=== PATIENT | female | born 1995 | race Caucasian/White ===

== ENCOUNTER 2018-06-25 16:07 | Emergency (ER) | payer BC ==
[2018-06-25 17:56] VITALS: BP 117/66
--- NOTE | 2018-06-25 18:45 | UC ---
Ear Complaint HPI - HPI Summary HPI Summary: 23 YO FEMALE who comes to clinic today with complaint of right ear pain. going on about one week it's gotten worse the last day or 2. She is a swimmer. She also has upper respiratory tract infection symptoms with nasal congestion and sinus pressure. No known trauma to the ear no known foreign bodies IN ear. No fevers - History of Current Complaint Chief Complaint: UCEar Stated Complaint: RT EAR PAIN Time Seen by Provider: 06/25/18 18:33 Hx Last Menstrual Period: 06/04/18 Pain Intensity: 4 - Allergies/Home Medications Allergies/Adverse Reactions: Allergies Allergy/AdvReac Type Severity Reaction Status Date / Time amoxicillin AdvReac Vomiting Verified 06/25/18 17:56 Home Medications: Home Medications Control Pill 1 tab BEDTIME 06/25/18 [History Confirmed 06/25/18] Sertraline* [Zoloft*] 100 mg PO BEDTIME 06/25/18 [History Confirmed 06/25/18] PMH/Surg Hx/FS Hx/Imm Hx - Surgical History Surgical History: None - Family History Known Family History: Positive: Unknown - Social History Alcohol Use: Occasionally Substance Use Type: None Smoking Status (MU): Never Smoked Tobacco Review of Systems Constitutional: Negative Skin: Negative Eyes: Negative ENT: Ear Ache, Nasal Discharge, Sinus Congestion Respiratory: Negative Cardiovascular: Negative Gastrointestinal: Negative Genitourinary: Negative Motor: Negative Neurovascular: Negative Musculoskeletal: Negative Neurological: Negative Psychological: Negative Is Patient Immunocompromised?: No All Other Systems Reviewed And Are Negative: Yes Physical Exam Triage Information Reviewed: Yes Appearance: Well-Appearing, No Pain Distress, Well-Nourished Vital Signs: Initial Vital Signs Temp 98.1 F 06/25/18 17:50 Pulse 84 06/25/18 17:50 Resp 17 06/25/18 17:50 BP 117/66 06/25/18 17:50 Pulse Ox 99 06/25/18 17:50 Vital Signs Reviewed: Yes Eye Exam: Normal Eyes: Positive: Conjunctiva Clear ENT: Positive: Pharyngeal erythema, Nasal congestion, Nasal drainage, TMs normal , Other - The right tragus is tender to palpation. In the ear canal near the TM in the anterior aspect there is a 2-3 mm dark brown foreign body seen. On my examination is unclear if this is dried blood or some other foreign body. The TM is not obscured. Neck: Positive: Supple Respiratory: Positive: Lungs clear, Normal breath sounds, No respiratory distress, No accessory muscle use Cardiovascular: Positive: RRR Abdominal Exam: Normal Musculoskeletal Exam: Normal Musculoskeletal: Positive: Strength Intact Neurological Exam: Normal Neurological: Positive: Alert Psychological Exam: Normal Skin Exam: Normal Ear Complaint Course/Dx - Course Course Of Treatment: I discussed the foreign body finding with the patient. The plan is to treat for sinusitis and also otitis externa and have a recheck in 1 week of the ear. It is dried blood I would expect that it would have resolved by then. If there is still something in the ear canal I would recommend a flushing of the ear canal. This is any other concerns then reevaluation by ENT would be appropriate. Patient can either follow-up here in clinic or with her primary care doctor at home or at the [facility]. Reevaluation sooner if worse - Differential Dx/Diagnosis Provider Diagnoses: OTITIS EXTERNA. SINUSITIS. RIGHT EAR CANAL FOREIGN BODY Discharge - Sign-Out/Discharge Documenting (check all that apply): Patient Departure All imaging exams completed and their final reports reviewed: No Studies - Discharge Plan Condition: Stable Disposition: HOME Prescriptions: Azithromyxin CHENG (NF) [Z-Cheng (Zithromax) 250 mg tabs #6] 2 tab PO .TODAY, THEN 1 DAILY #6 tab Neomyc/Polym/HC 1% OTIC SUSP* [Cortisporin Otic Susp 1%*] 4 drop RIGHT EAR QID # 1 btl Patient Education Materials: Sinusitis (ED), Otitis Externa (ED), Ear Foreign Body (ED) Referrals: Niraj Martin DO [Primary Care Provider] - Additional Instructions: FOLLOW UP WITH YOUR DOCTOR IN ONE WEEK. A BROWN FOREIGN BODY, POSSIBLY DRIED BLOOD WAS SEEN IN YOUR RIGHT EAR CANAL. AFTER ONE WEEK ON THE ANTIBIOTIC DROPS, GET RECHECKED TO SEE IF THIS HAS RESOLVED. GET RECHECKED SOONER FOR ANY WORSENING OF YOUR CONDITION OR QUESTIONS OR CONCERNS. - Billing Disposition and Condition Condition: STABLE Disposition: Home
== END 2018-06-25 18:58 | disposition home or self-care (01) ==
LOC: UCCORT 16:07
DX: H92.01 Otalgia, right ear (principal); Z88.0 Allergy status to penicillin
CPT/HCPCS: 99202; G0463